=== PATIENT | male | born 1990 | race Caucasian/White ===

== ENCOUNTER 2016-09-19 03:02 | Emergency (ER) | payer OTHER ==
[~2016-09-19] VITALS: Ht 170.2 cm; Wt 99.8 kg
[~2016-09-19 03:02] MED LIST: AMOXIL500 MG PO; PREDNISONE 20MG20 MG PO
--- NOTE | 2016-09-19 03:10 | ED GI/GU/ABDOMINAL COMPLAINT ---
History of Present Illness General Chief Complaint: General Adult Stated Complaint: " ATE SOMETHING BAD AT A [employer],COULD DRUGS" Source: patient Exam Limitations: no limitations Vital Signs & Intake/Output Vital Signs & Intake/Output Vital Signs Date Time Temp Pulse Resp B/P B/P Pulse O2 O2 Flow FiO2 Mean Ox Delivery Rate 09/198 100 Room Air 09/19 333 96.9 90 20 122/59 94 Room Air Allergies Coded Allergies: No Known Allergies (09/19/16) Reconcile Medications Amoxicillin (Amoxil) 500 MG CAP 1 CAP PO TID INFECTION Prednisone 20 MG TABLET 1 TAB PO DAILY INFLAMMATION Triage Nurses Notes Reviewed? yes Onset: Gradual Duration: hour(s):, waxing and waning Timing: recent history Quality/Severity: cramping Location: generalized abdomen Radiation: no radiation Activities at Onset: "I think it was the marijuana brownies." Prior Abdominal Problems: similar symptoms Modifying Factors: Improves With: rest. Associated Symptoms: nausea/vomiting HPI: 25 yo gentleman presents with mild nausea and slight dizziness after ingesting marijuana brownies at a [employer] approximately 1 hour ago. He notes no pain, injury. He denies drinking alcohol or doing other drugs. "I just feel really out of it... right after I ate the brownies." Past History Travel History Traveled to [place] past 21 day No Medical History Any Pertinent Medical History? see below for history Surgical History Surgical History: none Psychosocial History What is your primary language [place] Family History Hx Contributory? No Review of Systems Review of Systems Constitutional: Reports: no symptoms. EENTM: Reports: no symptoms. Respiratory: Reports: no symptoms. Cardiovascular: Reports: no symptoms. GI: Reports: no symptoms. Genitourinary: Reports: no symptoms. Musculoskeletal: Reports: no symptoms. Skin: Reports: no symptoms. Neurological/Psychological: Reports: no symptoms. Hematologic/Endocrine: Reports: no symptoms. Immunologic/Allergic: Reports: no symptoms. All Other Systems: Reviewed and Negative Physical Exam Physical Exam General Appearance: well developed/nourished, mild distress Head: atraumatic, normal appearance Eyes: Bilateral: normal appearance. Ears, Nose, Throat, Mouth: hearing grossly normal Neck: normal inspection, supple, full range of motion Respiratory: normal breath sounds, chest non-tender, no respiratory distress, quiet respiration, lungs clear Cardiovascular: regular rate/rhythm Gastrointestinal: normal bowel sounds, soft, non-tender, no organomegaly Back: normal inspection Extremities: normal range of motion Neurologic/Psych: no motor/sensory deficits, awake, alert, oriented x 3 Skin: intact, normal color, warm/dry Core Measures ACS in differential dx? No Severe Sepsis Present: No Septic Shock Present: No Progress Differential Diagnosis: drug effect, viral syndrome vs other. Plan of Care: Orders Procedure Date/time Status URINE DRUG SCREEN FOR ER ONLY 09/19 313 Active ETHANOL 09/19 313 Complete COMPREHENSIVE METABOLIC PANEL 09/19 313 Complete CBC WITHOUT DIFFERENTIAL 09/19 313 Complete Laboratory Tests 09/19/16318: Anion Gap 15, Estimated GFR > 60, BUN/Creatinine Ratio 20.0, Glucose 157 H, Calcium 9.2, Total Bilirubin 0.4, AST 35, ALT 107 H, Alkaline Phosphatase 65, Total Protein 7.0, Albumin 4.4, Globulin 2.6, Albumin/Globulin Ratio 1.7, CBC w Diff NO MAN DIFF REQ, RBC 4.69 L, MCV 86.5, MCH 29.7, RDW 12.8, MPV 8.9, Gran % 58.0, Lymphocytes % 31.7, Monocytes % 7.2, Eosinophils % 2.6, Basophils % 0.5, Absolute Granulocytes 9.1 H, Absolute Lymphocytes 4.9 H, Absolute Monocytes 1.1 H, Absolute Eosinophils 0.4, Absolute Basophils 0.1, PUBS MCHC 34.3, Serum Alcohol < 10.0 Initial ED EKG: none Departure Departure Disposition: HOME OR SELF CARE Condition: Stable Clinical Impression Primary Impression: Dizziness Secondary Impressions: Marijuana abuse Referrals: HUSSEIN CORTES,ALO Gutierres (PCP/Family) Departure Forms: Customer Survey General Discharge Information Comments 09/19/16, 5am... pt feeling well after resting... labs benign. He wishes to go home.
[2016-09-19 03:30] LABS: ABSOLUTE BASOPHIL COUNT 0.1 /CUMM (0.0-0.2); ABSOLUTE EOSINOPHIL COUNT 0.4 /CUMM (0.0-0.7); ABSOLUTE GRANULOCYTE CT 9.1 /CUMM (1.4-6.5); ABSOLUTE LYMPH COUNT 4.9 /CUMM (1.2-3.4); ABSOLUTE MONOCYTE COUNT 1.1 /CUMM (0.10-0.60); BASOPHIL % 0.5 % (0.0-2.0); EOSINOPHIL % 2.6 % (0-5); HEMATOCRIT 40.5 % (42-52); MEAN CORPUSCULAR HGB 29.7 PG (27.0-31.0); MEAN CORPUSCULAR HGB CONC 34.3 G/DL (33.0-37.0); MEAN CORPUSCULAR VOLUME 86.5 FL (80.0-94.0); MEAN PLATELET VOLUME 8.9 FL (7.4-10.4); PLATELET COUNT 261 /CUMM (130-400); RBC DISTRIBUTION WIDTH 12.8 % (11.5-14.5); RED BLOOD CELL CT 4.69 /CUMM (4.70-6.10); WHITE BLOOD CELL COUNT 15.6 /CUMM (4.8-10.8)
[2016-09-19 05:03] VITALS: BP 118/57
== END 2016-09-19 05:04 ==
LOC: ERH 03:02
PROVIDERS: Pediatrics
DX: R42 Dizziness and giddiness (principal); F12.10 Cannabis abuse, uncomplicated
CPT/HCPCS: 80307; G0480